=== PATIENT | male | born 1985 | race Caucasian/White ===

== ENCOUNTER 2023-02-20 08:00 | Outpatient (CLI) | payer OTHER ==
--- NOTE | 2023-02-20 16:37 | XRAY Report ---
PROCEDURE: Finger(s) RT INDICATIONS: RIGHT THUMB LACERATION TECHNIQUE: AP hand, 2 views of the thumb acquired. COMPARISON: None. FINDINGS: Bones: No fractures or dislocations. No suspicious bony lesions. Soft tissues: No suspicious soft tissue calcifications or masses. No radiopaque foreign bodies. IM PRESSION: No acute abnormality of the thumb. No radiopaque foreign bodies. Reviewed by: Marty Santillan on 02/20/2023 4:36 PM PDT Approved by: Marty Santillan on 02/20/2023 4:36 PM PDT Station ID: [id number]
== END 2023-02-20 23:59 | disposition home or self-care (01) ==
LOC: DI.S 08:00
PROVIDERS: ATTEND Physician Assistant
DX: S61.011A Laceration without foreign body of right thumb without damage to nail, initial encounter (principal)